=== PATIENT | female | born 1995 | race African-American/Black ===

== ENCOUNTER 2016-08-19 00:12 | Emergency (ER) | payer MEDICAID ==
[~2016-08-19] VITALS: Ht 170.2 cm; Wt 61.3 kg
[2016-08-19 00:28] VITALS: BP 136/96
[2016-08-19 01:00] LABS: Basophils # (auto) 0.2 uL; Eosinophils # (auto) 0 uL; Eosinophils % (auto) 0.1 % (0.0-7.0); Hematocrit 44.4 % (36.0-46.0); Hemoglobin 14.4 g/dL (12.2-16.2); Lymphocytes # (auto) 0.5 uL; Lymphocytes % (auto) 6.6 % (10.0-50.0); Mean Corpuscular Hemoglobin 27.1 pg (28.0-32.0); Mean Corpuscular Hgb Conc. 32.5 g/dL (32.0-36.0); Mean Corpuscular Volume 83.5 fL (80.0-100.0); Mean Platelet Volume 8.3 fL (7.4-10.4); Monocytes # (auto) 0.5 uL; Monocytes % (auto) 5.7 % (0.0-12.0); Neutrophils # (auto) 6.8 uL; Neutrophils % (auto) 85.6 % (37.0-80.0); Platelet Count (auto) 268 10^3/uL (140-450); Red Cell Distribution Width 13.6 % (11.6-16.0)
[2016-08-19 01:18] LABS: BUN/Creatinine Ratio 11.3; Calcium 9.1 mg/dL (8.5-10.1); Potassium 4.1 mmol/L (3.5-5.1)
[2016-08-19 01:22] LABS: Urine Bilirubin Negative (Negative); Urine Blood Negative /uL (Negative); Urine Color Yellow (Yellow); Urine Glucose Normal (Normal); Urine Mucus FEW (None Seen); Urine Nitrite Negative (Negative); Urine RBC <1 /hpf (0 - 4); Urine Squamous Epithelial Cell FEW /hpf (<5); Urine Urobilinogen Normal (Negative); Urine pH 5.5 (5.0-8.0)
[2016-08-19 01:23] LABS: Urine Ketone 2+ (Negative)
[2016-08-19] MEDS ORDERED: ONDANSETRON ODT 4 MG TAB PO ONE (01:30)
== END 2016-08-19 02:13 | disposition home or self-care (01) ==
LOC: ER 00:12
DX: K52.9 Noninfective gastroenteritis and colitis, unspecified (principal)
CPT/HCPCS: 36415; 80048; 81001; 81025; 85025; 99284; Q0162

== ENCOUNTER 2020-08-26 09:41 | Emergency (ER) | payer BC, MEDICAID ==
[~2020-08-26] VITALS: Ht 170.2 cm; Wt 63.5 kg
[2020-08-26 09:41] VITALS: BP 148/99
[2020-08-26 10:28] LABS: Basophils # (auto) 0 10 ^3/uL (0-0.2); Basophils % (auto) 0.8 % (0.0-2.0); Eosinophils # (auto) 0.3 10 ^3/uL (0-0.8); Eosinophils % (auto) 4.7 % (0.0-7.0); Hematocrit 42.5 % (36.0-46.0); Hemoglobin 14.3 g/dL (12.2-16.2); Lymphocytes # (auto) 2.3 10 ^3/uL (0.4-5.4); Lymphocytes % (auto) 37.4 % (10.0-50.0); Mean Corpuscular Hemoglobin 29.1 pg (28.0-32.0); Mean Corpuscular Hgb Conc. 33.6 g/dL (32.0-36.0); Mean Corpuscular Volume 86.5 fL (80.0-100.0); Monocytes # (auto) 0.5 10 ^3/uL (0-1.3); Monocytes % (auto) 8.3 % (0.0-12.0); Neutrophils % (auto) 48.8 % (37.0-80.0); Nucleated Red Blood Cells % 0.1 %; Platelet Count (auto) 252 10^3/uL (140-450); Red Blood Cells 4.92 10^6/uL (4.0-5.20); White Blood Cell 6.2 10^3/uL (4.4-10.8)
[2020-08-26 10:41] LABS: Anion Gap 7 (5-15); Blood Urea Nitrogen 9 mg/dL (7-18); Calcium 8.6 mg/dL (8.5-10.1); Carbon Dioxide 25 mmol/L (21-32); Chloride 106 mmol/L (98-107); Glucose 76 mg/dL (74-106); Potassium 3.7 mmol/L (3.5-5.1); Sodium 138 mmol/L (136-145)
[2020-08-26 10:47] LABS: BUN/Creatinine Ratio 10.8; GFR African American 108 mL/min; GFR Non-African American 89 mL/min
== END 2020-08-26 11:15 | disposition home or self-care (01) ==
LOC: ER 09:41
DX: R07.89 Other chest pain (principal)
CPT/HCPCS: 36415; 80048; 84484; 85025; 93005

== ENCOUNTER 2021-03-04 16:36 | Emergency (ER) | payer BC ==
[~2021-03-04] VITALS: Ht 170.2 cm; Wt 68.0 kg
[2021-03-04 16:37] VITALS: BP 142/95
[2021-03-04 17:44] LABS: Urine Bacteria FEW /hpf (None Seen); Urine Blood Negative /uL (Negative); Urine Mucus FEW (None Seen); Urine Specific Gravity 1.024 (1.001-1.035); Urine WBC <1 /hpf (0 - 5)
== END 2021-03-04 21:27 | disposition left against medical advice (07) ==
LOC: ER 16:36
DX: R30.0 Dysuria (principal); Z53.21 Procedure and treatment not carried out due to patient leaving prior to being seen by health care provider
CPT/HCPCS: 81001; 81025

== ENCOUNTER 2023-03-22 07:19 | Emergency (ER) | payer BC, OTHER ==
[~2023-03-22] VITALS: Ht 170.2 cm; Wt 70.5 kg
[2023-03-22 08:12] VITALS: BP 124/82; PULSE 93; RESP 18; TEMP 97.9; O2SAT 99
[2023-03-22] MEDS ORDERED: AZIT500T66 PO (08:14)
[2023-03-22] MEDS ORDERED: LIDO2SOL26 MT (08:14)
== END 2023-03-22 08:31 | disposition home or self-care (01) ==
LOC: ER 07:19
DX: J03.90 Acute tonsillitis, unspecified (principal); Z88.8 Allergy status to other drugs, medicaments and biological substances; Z79.899 Other long term (current) drug therapy

== ENCOUNTER 2024-01-26 07:42 | Inpatient (IN) | payer BC, OTHER ==
[~2024-01-26] VITALS: Ht 170.2 cm; Wt 72.6 kg
[~2024-01-26 07:42] MED LIST: AZIT500T66 PO; LIDO2SOL26 MT
[2024-01-26 08:06] LABS: Urine Bacteria None Seen /hpf (None Seen)
[2024-01-26 08:18] LABS: Basophils # (auto) 0.1 10 ^3/uL (0-0.2); Basophils % (auto) 1.3 % (0.0-2.0); Eosinophils # (auto) 0.2 10 ^3/uL (0-0.8); Eosinophils % (auto) 3.4 % (0.0-7.0); Hematocrit 42.7 % (36.0-46.0); Hemoglobin 14.4 g/dL (12.2-16.2); Lymphocytes # (auto) 1.9 10 ^3/uL (0.4-5.4); Lymphocytes % (auto) 39.2 % (10.0-50.0); Mean Corpuscular Hgb Conc. 33.8 g/dL (32.0-36.0); Mean Corpuscular Volume 85.8 fL (80.0-100.0); Monocytes # (auto) 0.5 10 ^3/uL (0-1.3); Monocytes % (auto) 9.7 % (0.0-12.0); Neutrophils # (auto) 2.2 10 ^3/uL (1.6-8.6); Neutrophils % (auto) 46.4 % (37.0-80.0); Nucleated Red Blood Cells % 0.1 %; Platelet Count (auto) 298 10^3/uL (140-450); Red Blood Cells 4.97 10^6/uL (4.0-5.20); Red Cell Distribution Width 13.5 % (11.8-14.3); White Blood Cell 4.8 10^3/uL (4.4-10.8)
[2024-01-26 08:22] LABS: Urine Blood Negative /uL (Negative); Urine Clarity Clear (Clear); Urine Color Yellow (Yellow); Urine Mucus FEW (None Seen); Urine Protein, UAD TRACE (Negative); Urine Specific Gravity 1.031 (1.001-1.035); Urine Urobilinogen Normal (Negative); Urine WBC <1 /hpf (0 - 5)
[2024-01-26 08:45] LABS: Chloride 110 mmol/L (98-107); Potassium 3.7 mmol/L (3.5-5.1); Sodium 141 mmol/L (136-145)
[2024-01-26 08:46] LABS: Anion Gap 6 (5-15); Carbon Dioxide 25 mmol/L (20-31)
[2024-01-26 08:47] LABS: Calcium 9.2 mg/dL (8.7-10.4)
[2024-01-26 08:51] LABS: Glucose 86 mg/dL (74-106)
[2024-01-26 08:52] LABS: BUN/Creatinine Ratio 8.3 (10.0-20.0); Blood Urea Nitrogen 8 mg/dL (9-23)
[2024-01-26 11:04] VITALS: BP 113/94; PULSE 83; RESP 17; TEMP 98.1; O2SAT 96
[2024-01-26] MEDS ORDERED: ONDANSETRON HCL 4 MG/2 ML VIAL IV PRN (12:00)
[2024-01-26] MEDS ORDERED: MORPHINE SULFATE INJ 2 MG/ml SYRG IV PRN (12:00)
[2024-01-26 13:13] LABS: Amphetamine Screen, Urine Neg (NEGATIVE); Barbiturate Scree,Urine Neg (NEGATIVE); Benzodiazephine Screen, Urine Neg (NEGATIVE); Cocaine Screen, Urine Neg (NEGATIVE); Opiate Scree,Urine Neg (NEGATIVE)
[2024-01-26 13:15] LABS: Cannabinoid Screen, Urine Neg (NEGATIVE); Phencyclidine Screen, Urine Neg (NEGATIVE)
[2024-01-26] MEDS ORDERED: PANTOPRAZOLE 40 MG/10 ML VIAL INJ IV SCH (13:30)
[2024-01-26 14:21] LABS: Alanine Aminotransferase 10 U/L (7-40); Albumin 4.3 g/dL (3.2-4.8); Alkaline Phosphatase 66 U/L (46-116); Aspartate Aminotransferase 13 U/L (13-40)
[2024-01-26 14:22] LABS: Bilirubin, Direct < 0.1 mg/dL (<0.3); Bilirubin, Total 0.4 mg/dL (0.2-1.0); Total Protein 7.6 g/dL (5.7-8.2)
[2024-01-27] MEDS ORDERED: OMEP-434 PO (00:13)
== END 2024-01-26 16:19 | disposition left against medical advice (07) | DRG 532 ==
LOC: ER 07:42 → OVERFLOW 11:58
PROVIDERS: ADMIT Registered Nurse General Practice; ATTEND Registered Nurse General Practice
DX: D25.9 Leiomyoma of uterus, unspecified (principal); K56.600 Partial intestinal obstruction, unspecified as to cause; Z53.29 Procedure and treatment not carried out because of patient's decision for other reasons; Z79.899 Other long term (current) drug therapy; Z88.0 Allergy status to penicillin
CPT/HCPCS: 36415; 74176; 80048; 80076; 80307; 81001; 84702; 85025; G0378

== ENCOUNTER 2024-01-26 23:12 | Emergency (ER) | payer OTHER ==
[~2024-01-26] VITALS: Ht 170.2 cm; Wt 72.7 kg
[2024-01-26] MEDS: LIDOCAINE VISCOUS 2% 15ML UD MT ONE (23:57)
[2024-01-26] MEDS: MAALOX PLUS or MAALOX 30 ML PO ONE (23:57)
[2024-01-27] MEDS ORDERED: OMEP-434 PO (00:13)
[2024-01-27 00:28] VITALS: BP 141/85; PULSE 90; RESP 18; TEMP 97.7; O2SAT 97
== END 2024-01-27 00:38 | disposition home or self-care (01) ==
LOC: ER 23:12
DX: K52.9 Noninfective gastroenteritis and colitis, unspecified (principal); Z88.0 Allergy status to penicillin; Z98.890 Other specified postprocedural states